=== PATIENT | male | born 1975 ===

== ENCOUNTER → 2020-04-15 | Outpatient (CLI) | payer OTHER ==
--- NOTE | 2020-04-15 13:25 | RAD ---
CERVICAL SPINE WO CONTRAST History:Reason: CERVICAL MUSCLE WEAKLNESS AND DISCOMFPRT, PAIN RADIATING TO LEFT ARM / Spl. Instructions: / History: Technique: Multiplanar, multi sequential noncontrast MR imaging was performed of the cervical spine. Comparison: None Findings: Straightening of the normal cervical lordosis. Normal vertebral body height. No fracture. Congenital small spinal canal. No pathologic signal abnormality within the cervical spinal cord. C2-C3: No canal or neuroforaminal narrowing. C3-C4: Disc bulge. Mild canal narrowing. Cord flattening. Uncovertebral and facet arthropathy. Moderate bilateral neural foraminal narrowing. C4-C5: Small disc bulge. Minimal canal narrowing. Mild cord flattening. Uncovertebral and facet arthropathy. Moderate right and mild left neuroforaminal narrowing. C5-C6: Posterior disc osteophyte complex. Partial effacement of ventral CSF space. Dorsal CSF spaces preserved. Minimal canal narrowing. Cord flattening. Uncovertebral and facet arthropathy. Severe right and mild left neuroforaminal narrowing. C6-C7: Posterior disc osteophyte complex. Minimal canal narrowing. Mild cord flattening. Partial effacement of ventral CSF space. Dorsal CSF spaces preserved. Uncovertebral and facet arthropathy. Severe left and moderate right neuroforaminal narrowing. C7-T1: Posterior disc osteophyte complex. No canal narrowing. Uncovertebral and facet arthropathy. Severe left and mild right neuroforaminal narrowing. T1-T2: Broad-based disc bulge. Severe left and moderate right neuroforaminal narrowing. No canal narrowing. Facet arthropathy. Impression: 1. Moderate multilevel cervical spondylosis with congenitally small spinal canal contributing to mild canal narrowing most prominent C3-C4. 2. Multilevel neural foraminal narrowing most prominent right C5-C6, left C6-C7, left C7-T1 and left T1-T2. Electronically signed by: Fritz James DO (04/15/2020 1:22 PM) [id number]
== END | disposition home or self-care (01) ==
LOC: MRI 10:14
PROVIDERS: ATTEND Nurse Practitioner Family
DX: M47.812 Spondylosis without myelopathy or radiculopathy, cervical region (principal); M62.81 Muscle weakness (generalized); M48.03 Spinal stenosis, cervicothoracic region; M25.78 Osteophyte, vertebrae; M40.50 Lordosis, unspecified, site unspecified; M51.24 Other intervertebral disc displacement, thoracic region; M50.21 Other cervical disc displacement, high cervical region
CPT/HCPCS: 72141